=== PATIENT | female | born 1985 | race Caucasian/White ===

== ENCOUNTER 2017-02-11 15:07 | Emergency (ER) | payer OTHER ==
[~2017-02-11] VITALS: Ht 175.3 cm; Wt 63.5 kg
[2017-02-11 15:32] VITALS: BP 111/71
[2017-02-11] MEDS ORDERED: TDAP [DIPH/PERTUSSIS/TET] 0.5 ML VIAL IM ONE ×2 (16:00→16:03)
== END 2017-02-11 16:14 | disposition home or self-care (01) ==
LOC: ER 15:11
DX: S66.126A Laceration of flexor muscle, fascia and tendon of right little finger at wrist and hand level, initial encounter (principal); W26.0XXA Contact with knife, initial encounter; Y93.89 Activity, other specified; Y92.000 Kitchen of unspecified non-institutional (private) residence as the place of occurrence of the external cause; Y99.9 Unspecified external cause status
CPT/HCPCS: 29130; 90471; 90715; 99283; A4606; Z7610

== ENCOUNTER 2017-02-12 21:18 | Emergency (ER) | payer OTHER ==
[~2017-02-12] VITALS: Ht 154.9 cm; Wt 68.5 kg
[2017-02-12 22:10] VITALS: BP 158/70
--- NOTE | 2017-02-12 23:05 | NUR ---
SEEN AND EVALUATED BY ERMD. D/C IN STABLE CONDITION.
== END 2017-02-12 23:08 | disposition home or self-care (01) ==
LOC: ER 21:20
DX: M79.605 Pain in left leg (principal); F41.9 Anxiety disorder, unspecified
CPT/HCPCS: A4606; Z7610